=== PATIENT | male | born 1935 | race Caucasian/White ===

== ENCOUNTER → 2018-04-13 | Outpatient (CLI) | payer MEDICARE, OTHER ==
[~2018-04-13] MED LIST: ALFU10TA2 PO; CA C1TAB60 PO; METH850P PO; MEVA40 PO; MULT1TAB PO; OMEP40CA3 PO; POLY17PO PO; TEST5GEL TD; TRIA1CAP44 PO; VENLAFAXINE PO; [UNRECOGNIZED DRUG - CODE] PO
--- NOTE | 2018-04-13 13:24 | PN ---
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 It appears that the polyethylene component is not well fixed. Although the patient is able to walk with a brace, he needs a revision of his left knee. This was discussed in [facility] with him. The possibility of a polyethylene exchange versus full revision was discussed. He will be scheduled for surgery in the near future Subjective 24 Hr Interval Summary Free Text/Dictation Tray Cifuentes is an 83-year-old male who is here for evaluation of left knee pain. The pain has been ongoing for the past few weeks. Over the past few days, the knee pain is increased to a point where he is unable to do his activities without a brace. The pain is associated with swelling and stiffness. There is no history of trauma. He denies fever or chills. The patient states that something has to be done because he is unable to go on like this Additional Comments Past history significant for left knee replacement that was done in 2013 Exam/Review of Systems Exam Vitals Vital signs are stable, patient is afebrile Exam Examination shows a pleasant male. He walks with a limp. He has difficulty getting up from a sitting position. The left knee has a moderate effusion. There is anterior tenderness. Range of motion is 10-95 degrees. There appears to be prominence of polyethylene anteriorly. There is instability of the knee as well. X-rays of the knee done today are compared with previous x-rays and it appears that the polyethylene component has shifted or is dislocated JULIANE SAAVEDRA Apr 13, 2018 13:24
--- NOTE | 2018-04-13 21:53 | RADRPT ---
PROCEDURE: XR Left Knee. CLINICAL INDICATION: Left knee pain. Postop. TECHNIQUE: 2 views. Frontal and lateral. COMPARISON: 05/05/2013. FINDINGS: There is no fracture or dislocation. Vascular calcifications are present consistent with atherosclerosis. 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 There is a surgical screw anteriorly in the knee joint protr uding from the tibial component approximately 9 mm. There is no lytic or blastic lesion. IMPRESSION: 1. Atherosclerosis. 2. Surgical screw anteriorly in the knee joint protruding from the tibial component approximately 9 mm. 3. Otherwise unremarkable postoperative appearance of the left knee. RPTAT: QQ .Mina Cochran MD, MD Date Time Electronically viewed and signed by .Mina Cochran MD, MD on 04/13/2018 21:53 .R/
== END | disposition home or self-care (01) ==
LOC: HKI 11:53
PROVIDERS: ATTEND Orthopaedic Surgery
DX: M25.562 Pain in left knee (principal); Z96.652 Presence of left artificial knee joint
CPT/HCPCS: 73560; G0463

== ENCOUNTER → 2018-04-27 | Outpatient (CLI) | payer MEDICARE, OTHER ==
[~2018-04-27] MED LIST changes: +CALC1TAB79 PO; +CITR454 PO; +CLON0.5T14 PO; +ESCI20TA PO; +FINA5TAB4 PO; +GABA300C16 PO; +LOVA-54 PO; +MAXZ25 PO; +MULTI PO; +OMEP20CA16 PO; +POLY17PO6 PO; +TEST75GE TD
--- NOTE | 2018-04-27 12:02 | PN ---
Date/Time of Note Date/Time of Note DATE: 04/27/18 TIME: 12:01 Assessment/Plan VTE Prophylaxis Pharmacological prophylaxis: other Assessment/Plan Assessment/Plan The patient is an 83-year-old male with a failed left total knee replacement. He is scheduled for left knee revision in the next few days. Preoperative visit was completed. Risks and benefits of surgical treatment have been discussed with the patient including but not limited to bleeding, scarring and stiffness, infection, injury to nerves and vessels, dislocation, fracture, DVT and PE, implant failure and need for further surgery. Patient understands and wishes to proceed Subjective 24 Hr Interval Summary Free Text/Dictation Mr. Cifuentes is here for a preoperative visit related to left knee revision scheduled in about 10 days JULIANE SAAVEDRA Apr 27, 2018 12:02
== END | disposition home or self-care (01) ==
LOC: HKI 11:44
PROVIDERS: ATTEND Orthopaedic Surgery
DX: Z01.818 Encounter for other preprocedural examination (principal)
CPT/HCPCS: G0463

== ENCOUNTER 2018-05-07 08:07 | Inpatient (IN) | payer MEDICARE, OTHER ==
[2018-04-27 15:35] VITALS: Ht 182.9 cm; Wt 86.4 kg
--- NOTE | 2018-04-30 08:45 | PREOPHP ---
DATE OF ADMISSION: 05/07/2018 REASON FOR ADMISSION: The patient to have surgery with Dr. Juliane Saavedra on 05/07/2018. REASON FOR CONSULTATION: Consultation requested by Dr. Juliane Saavedra for medical evaluation and clearance of an 83-year-old gentleman about to undergo surgery. HISTORY OF PRESENT ILLNESS: Tray Cifuentes, an 83-year-old gentleman with history of a total knee replacement on the left in the past. He is currently being admitted for a re-do of a failed total knee replacement on the left. Thank you, Dr. Saavedra, for allowing us to participate in care of this patient. Tray Cifuentes 83-year-old gentleman, issues with his knee, is currently being admitted for correction of the above. PAST MEDICAL HISTORY: In terms of his past medical and surgical history, he has had no medical hospitalizations prior surgeries have included arthroscopic surgery x1 of his left knee as well as a total knee replacement on the left, umbilical hernia repair x3 and a right inguinal hernia repair x1. He has not broken any bones. MEDICATIONS: He is currently taking the following medications; 1. Lovastatin 40 mg daily. 2. Alfuzosin 10 mg daily. 3. Maxzide 37.5 one p.o. daily. 3. Clonazepam 0.5 mg b.i.d. 4. AndroGel 1.6% three pumps every morning. 5. Finasteride 5 mg once a day. 6. Lexapro 20 mg daily. 7. Gabapentin 300 mg daily. ALLERGIES: THE PATIENT IS NOT ALLERGIC TO ANY MEDICATIONS. SOCIAL HISTORY: The patient is a , has 3 daughters and 4 grandchildren. He does not smoke or drink alcohol or coffee and has no difficulty sleeping at night and has been drinking alcohol or coffee. He has no difficulty sleeping at night. FAMILY HISTORY: Father at age 86 of Parkinson's and its complications. Mother in her 90s of old age, as well as stroke if there is a family history of heart, hypertension, stroke, and Parkinson's as mentioned above. REVIEW OF SYSTEMS: HEENT: Unremarkable. CARDIORESPIRATORY: He denies any chest pain or shortness of breath. GASTROINTESTINAL: He has some signs and symptoms of hyperacidity. Otherwise, no melena or hematemesis. GENITOURINARY: He has some urgency and frequency and history of prostatic enlargement, for which he is being medicated. MUSCULOSKELETAL: Positive for left knee pain. NEUROPSYCHIATRIC: Unremarkable. GENERAL HEALTH: As above. PHYSICAL EXAMINATION: VITAL SIGNS: The patient's blood pressure was 136/70, pulse was 76 and regular, respirations were 18, temperature 98.5. Height 5 feet 11 inches, weight 198 pounds. GENERAL: The patient was noted to be a well-developed, well-nourished male, alert and cooperative, in no apparent acute distress, oriented to time, place, and person. HEAD, EARS, EYES, NOSE AND THROAT: Head was atraumatic. Eyes: Pupils were equal, reactive to light and accommodation. Fundi were benign. Tympanic membranes were unremarkable. Nose was negative. Mouth was unremarkable. Fair oral hygiene was present. NECK: Supple without any rigidity. Trachea was midline. Thyroid was within normal limits. Neck veins were flat. Carotid pulses were equal. No bruits were heard. BACK: Unremarkable. CHEST: Symmetrical. BREASTS AND AXILLARY: Did not reveal any masses. LUNGS: Clear to percussion and auscultation. HEART: PMI is fifth intercostal space at the midclavicular line. A regular sinus rhythm was noted. No significant murmurs, rubs, or gallops being elicited. ABDOMEN: Soft, good bowel sounds were noted. Scars from prior surgery is being noted. GENITALIA: Normal male external genitalia. RECTAL AND PROSTATIC: Per PCP. EXTREMITIES: Did not reveal any clubbing, edema or cyanosis. Scar from prior surgery was noted. Peripheral pulses were physiologic. SKIN: Moist and warm without any eruptions. No gross lymphadenopathy was noted. NEUROLOGIC: Grossly intact. IMPRESSION: 1. Failed total knee replacement, left knee, . 2. Hyperlipidemia. 3. Hypertension. 4. Hypogonadism. 5. Prostatic hypertrophy. 6. Stable health. DISCUSSION: Review of laboratory and other data revealed the following: The patient's chemistry panel revealed basically normal electrolytes; however, sodium was slightly low at 130, BUN and creatinine, glucose, uric acid, calcium proteins, liver function tests, lipids, iron, CBC, sed. rate, UA, PT and PTT were normal. The patient's EKG was borderline revealing bradycardia and a few PACs. Chest x-ray revealed degenerative joint disease, no acute infiltrates, nor were there any acute cardiopulmonary changes being noted, and the patient's residual volume post-void was 62 ml, which goes along with his history of prostatic hypertrophy. DISCUSSION: Dr. Saavedra, I see no contraindications in this patient undergoing current proposed surgery under desired form of anesthesia. I feel he is a suitable candidate at this particular point in time and I will be more than happy to follow him with you during his stay at [facility]. Thank you again, Dr. Saavedra for allowing us to participate in the care of this patient. Dictated By: JO ANN REA MD SS/NTS Conf#: [id number] DID#: [id number] CC: JULIANE SAAVEDRA MD;*EndCC* MTDD
[~2018-05-07] VITALS: Ht 182.9 cm; Wt 86.4 kg
[2018-05-07] VITALS (27 sets, daily range): BP systolic 92–158; BP diastolic 53–88; PULSE 50–84; RESP 12–30
[~2018-05-07 08:07] MED LIST changes: +ACETAMINOPHEN 500 MG TAB PO ONE; -CALC1TAB79 PO; +CEFAZOLIN 2 GM/50 ML (PMX) 50 ML IVPB ONE; -CITR454 PO; -CLON0.5T14 PO; +DEXAMETHASONE 4 MG/ML 1 ML INJ IV ONE; -ESCI20TA PO; -FINA5TAB4 PO; -GABA300C16 PO; +LACTATED RINGER'S 1,000 ML IV* SCH; -LOVA-54 PO; -MAXZ25 PO; -MULTI PO; -OMEP20CA16 PO; -POLY17PO6 PO; -TEST75GE TD; +TRANEXAMIC ACID 1GM/100ML(PMX) 100 ML INTRA-OP X1 IVPB ONE; +TRANEXAMIC ACID 1GM/100ML(PMX) 100 ML PRE-OP X1 IVPB ONE
[2018-05-07] MEDS ORDERED: LOVA-54 PO (08:54)
[2018-05-07] MEDS ORDERED: ALFU10TA2 PO (08:55)
[2018-05-07] MEDS ORDERED: MAXZ25 PO (08:56)
[2018-05-07] MEDS ORDERED: CLON0.5T14 PO (08:57)
[2018-05-07] MEDS ORDERED: TEST75GE TD (08:59)
[2018-05-07] MEDS ORDERED: ESCI20TA PO (09:00)
[2018-05-07] MEDS ORDERED: FINA5TAB4 PO (09:00)
[2018-05-07] MEDS ORDERED: POLY17PO6 PO (09:01)
[2018-05-07] MEDS ORDERED: GABA300C16 PO (09:01)
[2018-05-07] MEDS ORDERED: CITR454 PO (09:02)
[2018-05-07] MEDS ORDERED: OMEP20CA16 PO (09:02)
[2018-05-07] MEDS ORDERED: CALC1TAB79 PO (09:03)
[2018-05-07] MEDS ORDERED: MULTI PO (09:03)
[2018-05-07] MEDS ORDERED: ACETAMINOPHEN 1000MG/100ML IV 100 ML IVPB SCH (09:30)
--- NOTE | 2018-05-07 09:57 | HPN ---
Date/Time of Note Date/Time of Note DATE: 05/07/18 TIME: 09:57 Interval H&P Admission Note Pt. seen H&P reviewed: No system changes JULIANE SAAVEDRA May 07, 2018 09:57
[2018-05-07] MEDS ORDERED: TRANEXAMIC ACID 1GM/100ML(PMX) 200 ML ONE (10:36)
[2018-05-07] MEDS ORDERED: POLYMYXIN B 500000 UNIT INJ ONE ×2 (10:36→11:12)
[2018-05-07] MEDS ORDERED: BACITRACIN 50000 UNITS INJ ONE (10:38)
--- NOTE | 2018-05-07 11:06 | PREAC ---
Date/Time of Note Date/Time of Note DATE: 05/07/18 TIME: 11:05 Anesthesia Eval and Record Evaluation Time Pre-Procedure Interview DATE: 05/07/18 TIME: 11:05 Age 83 Sex male NPO: 8 hrs Preoperative diagnosis L knee pain Planned procedure Revision L total knee Past Medical History Past Medical History: Includes Cardio: HTN, Dyslipidemia Musculoskeletal: Osteoarthritis GI: GERD Psych: Anxiety Surgery & Anesthesia Issues No known issue Meds Anticoagulation: No Beta Bon within 24 hr: No Reason Beta Bon not given: Pt. not on B-Bon Reported Medications Calcium Carbonate/Vitamin D3 (Oysco 500+D Tablet) 1 Each Tablet, 1 EACH PO BID, TAB 05/07/18 Multivitamins* (Theragran*) 1 Tab Tab, 1 TAB PO DAILY, TAB 05/07/18 Omeprazole* (Omeprazole*) 20 Mg Capsule.dr, 20 MG PO DAILY, #30 CAP 05/07/18 Methylcellulose* (Citrucel*) 454 Gm Susp, 1 PKT PO DAILY, PKT 05/07/18 Polyethylene Glycol* (Miralax*) 17 Gm Powd.pack, 17 GM PO TID, #30 PACKET 05/07/18 Gabapentin* (Gabapentin*) 300 Mg Capsule, 300 MG PO QHS, #60 CAP 05/07/18 Escitalopram Oxalate* (Lexapro*) 20 Mg Tablet, 20 MG PO DAILY, #30 TAB 05/07/18 Finasteride* (Finasteride*) 5 Mg Tablet, 5 MG PO DAILY, TAB 05/07/18 Testosterone* (Androgel*) 1.62%-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, 4 PUMP TD DAILY, EA 05/07/18 Clonazepam* (Clonazepam*) 0.5 Mg Tablet, 0.5 MG PO BID, TAB 05/07/18 Triamterene/Hctz* (Maxzide (37.5-25)*) 1 Each Tablet, 1 EACH PO DAILY, #30 TAB 05/07/18 Alfuzosin Hcl* (Alfuzosin Hcl*) 10 Mg Tab.er.24h, 10 MG PO PC DINNER, #30 TAB.SA 05/07/18 Lovastatin* (Altoprev*) 40 Mg Tab.sr.24h, 40 MG PO HS, TAB 05/07/18 Discontinued Reported Medications Polyethylene Glycol (Miralax) 17 Gm/Pkt Liq, 17 GM PO TID 11/12/12 Methylcellulose (With Sugar) (CITRUCEL POWDER) 850 Gm Powder, 850 GM PO AM 1 SCOOP Q AM 11/12/12 Multivitamins W-Minerals/Lut (Mature Adult Century Tablet) 1 Tab Tablet, 1 TAB PO BID 11/12/12 Omeprazole* (Prilosec*) 40 Mg Capsule.dr, 40 MG PO PM 11/12/12 Ca Carbonate-Vitamin D3-Vit K (Calcium + D Soft Chewable Tab) 1 Each Tab.chew, 1 EACH PO 11/12/12 Testosterone* (Androgel*) 5 Gm Gel.packet, 5 GM TD AM 4 PUMPS EVERY MORNING 11/12/12 Clonazepam* (Clonazepam* ODT) 0.5 Mg/Tab Tab.rapdis, 0.5 MG PO BID 11/12/12 [Vanlafaxine Hcl] No Conflict Check, 75 PO BID 11/12/12 Triamterene-HCTZ (Triamterene-HCTZ) 1 Cap Capsule, 1 CAP PO PM 11/12/12 Alfuzosin Hcl* (Alfuzosin Hcl*) 10 Mg Tab.er.24h, 10 MG PO PM 11/12/12 Lovastatin (Lovastatin) 40 Mg Tablet, 40 MG PO PM 11/12/12 Current Medications Lactated Ringer's 1,000 ml @ 125 mls/hr Q8H IV* Last administered on 05/07/18at 07:00; Admin Dose 125 MLS/HR; Start 05/07/18 at 07:00; Stop 05/07/18 at 14:59 Meds reviewed: Yes Allergies Coded Allergies: No Known Allergies (Verified Allergy, Unknown, 05/07/18) Allergies Reviewed: Yes Labs/Studies Labs Reviewed: Reviewed by anesthesiologist Blood Bank Test 05/07/18 09:00 Antibody Screen NEGATIVE Blood Type A POSITIVE test: N/A Studies: ECG Pre-procedure Exam Last vitals Vital Signs Date Temp Pulse Resp B/P (MAP) Pulse Ox O2 O2 Flow FiO2 Time Delivery Rate 05/07/18 97.5 50 16 156/68 97 Room Air 09:13 (97) Airway: Adequate mouth opening, Adequate thyromental dist Mallampati: Mallampati II Teeth: Normal Lung: Normal Heart: Normal ASA Physical Status ASA physical status: 3 Emergency: None Planned Anesthetic General/MAC: ETT Neuraxial: Spinal Nerve block: Femoral (left) Planned Pain Management Sub-arachniod narcotics Pre-operative Attestations Prior to commencing anesthesia and surgery, the patient was re-evaluated, there was verification of: *The patient's identity *The results of appropriate recent lab work and preoperative vital signs *The above evaluation not changing prior to induction *Anesthetic plan, risk benefits, alternative and complications discussed with patient/family; questions answered; patient/family understands, accepts and wishes to proceed. MIKE MONTERO May 07, 2018 11:06
[2018-05-07] MEDS ORDERED: morphine SULFATE/PF (10 MG/10 ML) INJ ONE (11:30)
[2018-05-07] MEDS ORDERED: MIDAZOLAM 1 MG/ML 2 ML INJ ONE (11:30)
[2018-05-07] MEDS ORDERED: METOCLOPRAMIDE 10 MG INJ IV PRN (11:30)
[2018-05-07] MEDS ORDERED: FENTAnyl 50 MCG/ML VIAL IV PRN ×2 (11:30)
[2018-05-07] MEDS ORDERED: DIPHENHYDRAMINE 50 MG INJ IV PRN (11:30)
[2018-05-07] MEDS ORDERED: ROPIVACAINE 0.5 % 30 ML VIAL ONE (11:30)
[2018-05-07] MEDS ORDERED: ONDANSETRON 4 MG INJ IV PRN (11:30)
[2018-05-07] MEDS ORDERED: HYDROmorphONE 1 MG/5 ML IV SYRINGE IV PRN ×2 (11:30)
[2018-05-07] MEDS ORDERED: ALBUTEROL 0.083% (NEB) 2.5 MG/3 ML AMP HHN PRN (11:30)
[2018-05-07] MEDS ORDERED: FENTAnyl 50 MCG/ML VIAL ONE (12:04)
[2018-05-07] MEDS ORDERED: PROPOFOL 40 ML ONE (13:20)
[2018-05-07] MEDS ORDERED: CEFAZOLIN 1 GM INJ ONE (13:20)
--- NOTE | 2018-05-07 13:22 | SIPON ---
Date/Time of Note Date/Time of Note DATE: 05/07/18 TIME: 13:21 Operative Report Preoperative Diagnosis Failed left total knee replacement Postoperative Diagnosis Same Operation/Procedure Performed Revision of left total knee replacement Surgeon see signature line therapeutic assistant None Anesthesia: spinal Estimated blood loss: 150 - 200 ml's Transfusion Required none Specimen Cultures Grafts/Implants DJ O knee, 15 mm polyethylene for a size 8 tibia. 38 mm patella from the [employer] knee system Complications none JULIANE SAAVEDRA May 07, 2018 13:22
--- NOTE | 2018-05-07 13:26 | OPR ---
Date/Time of Note Date/Time of Note DATE: 05/07/18 TIME: 13:22 Operative Report Procedure Date: May 07, 2018 Preoperative Diagnosis Failed left total knee replacement Postoperative Diagnosis Same Operation/Procedure Performed Revision of left total knee replacement Surgeon see signature line Char Filter Tank Tender None Anesthesia Type: spinal Estimated Blood Loss: 150 - 200 ml's Transfusion none Specimen Cultures Grafts/Implants DJ O knee, size 15 polyethylene for a size 8 tibia, 38 mm patella component from the attune knee system Complications none Pt Condition Post Procedure: stable Disposition: PACU Indications The patient is an 83-year-old male with a failed left knee replacement and dislocated polyethylene Procedure Description The patient was placed supine on the operating room table. The left knee was prepped and draped in the usual manner, preoperative antibiotics were administered. The left knee was approached anteriorly using the previous incision. Upon entering the joint a large effusion was encountered. Cultures were obtained. Reactive synovitis was seen much of the synovium was removed. Extensive polyethylene particles were noted in the knee, these were removed. The polyethylene post was broken and the polyethylene component was displaced. The previous polyethylene was removed. The patellar component was damaged as well. The patellar component was removed as well. New components were placed including a 38 mm patella and new polyethylene. Trials showed that 15 mm of polyethylene were adequate to stabilize the knee. The polyethylene was stabilized with provided bolt from the DJ O knee system. The knee had full range of motion with good tracking of the patella. The knee was injected with pain cocktail. Hemostasis was confirmed with electrocautery and aqua mantis. The knee was closed in layers using #1 strata fix for deep fascia, 2-0 Vicryl for subcutaneous tissue and 3-0 Monocryl for the skin. Patient was transferred to the recovery room in stable condition JULIANE SAAVEDRA May 07, 2018 13:26
[2018-05-07] MEDS ORDERED: MAGNESIUM HYDROXIDE 30ML CUP PO PRN (13:30)
[2018-05-07] MEDS ORDERED: NALOXONE (0.4 MG/ML) INJ IV PRN (13:30)
[2018-05-07] MEDS ORDERED: oxyCODONE 5 MG TAB PO PRN ×2 (13:30)
[2018-05-07] MEDS ORDERED: NACL 0.9% 3 ML SYG IV SCH (13:30)
[2018-05-07] MEDS ORDERED: KETOROLAC 15 MG INJ IV PRN (13:30)
[2018-05-07] MEDS: CEFAZOLIN 2 GM/50 ML (PMX) 50 ML IVPB SCH ×2 (14:06→21:40)
--- NOTE | 2018-05-07 15:39 | CONS ---
Consult Date/Type/Reason Admit Date/Time May 07, 2018 at 08:07 Initial Consult Date 04/27/2018 Type of Consultation: internal medicine Reason for Consultation pre-op medical evaluation and clearance Requesting Provider: JULIANE SAAVEDRA Date/Time of Note DATE: 05/07/18 TIME: 15:30 Subjective alert post-op in recovery room waiting for trasfer to floor care Objective Vitals Vital Signs Date Temp Pulse Resp B/P (MAP) Pulse Ox O2 O2 Flow FiO2 Time Delivery Rate 05/07/18 76 21 133/67 95 Room Air 15:00 (89) 05/07/18 98.0 13:45 Exam vital signs stable HEENT negative lungs clear heart regular rhythm abdomen soft extremities right OK left bandage at surgical site edema left lower extremity Results/Medications Home Meds Reported Medications Calcium Carbonate/Vitamin D3 (Oysco 500+D Tablet) 1 Each Tablet, 1 EACH PO BID, TAB 05/07/18 Multivitamins* (Theragran*) 1 Tab Tab, 1 TAB PO DAILY, TAB 05/07/18 Omeprazole* (Omeprazole*) 20 Mg Capsule.dr, 20 MG PO DAILY, #30 CAP 05/07/18 Methylcellulose* (Citrucel*) 454 Gm Susp, 1 PKT PO DAILY, PKT 05/07/18 Polyethylene Glycol* (Miralax*) 17 Gm Powd.pack, 17 GM PO TID, #30 PACKET 05/07/18 Gabapentin* (Gabapentin*) 300 Mg Capsule, 300 MG PO QHS, #60 CAP 05/07/18 Escitalopram Oxalate* (Lexapro*) 20 Mg Tablet, 20 MG PO DAILY, #30 TAB 05/07/18 Finasteride* (Finasteride*) 5 Mg Tablet, 5 MG PO DAILY, TAB 05/07/18 Testosterone* (Androgel*) 1.62%-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, 4 PUMP TD DAILY, EA 05/07/18 Clonazepam* (Clonazepam*) 0.5 Mg Tablet, 0.5 MG PO BID, TAB 05/07/18 Triamterene/Hctz* (Maxzide (37.5-25)*) 1 Each Tablet, 1 EACH PO DAILY, #30 TAB 05/07/18 Alfuzosin Hcl* (Alfuzosin Hcl*) 10 Mg Tab.er.24h, 10 MG PO PC DINNER, #30 TAB.SA 05/07/18 Lovastatin* (Altoprev*) 40 Mg Tab.sr.24h, 40 MG PO HS, TAB 05/07/18 Discontinued Reported Medications Polyethylene Glycol (Miralax) 17 Gm/Pkt Liq, 17 GM PO TID 11/12/12 Methylcellulose (With Sugar) (CITRUCEL POWDER) 850 Gm Powder, 850 GM PO AM 1 SCOOP Q AM 11/12/12 Multivitamins W-Minerals/Lut (Mature Adult Century Tablet) 1 Tab Tablet, 1 TAB PO BID 11/12/12 Omeprazole* (Prilosec*) 40 Mg Capsule.dr, 40 MG PO PM 11/12/12 Ca Carbonate-Vitamin D3-Vit K (Calcium + D Soft Chewable Tab) 1 Each Tab.chew, 1 EACH PO 11/12/12 Testosterone* (Androgel*) 5 Gm Gel.packet, 5 GM TD AM 4 PUMPS EVERY MORNING 11/12/12 Clonazepam* (Clonazepam* ODT) 0.5 Mg/Tab Tab.rapdis, 0.5 MG PO BID 11/12/12 [Vanlafaxine Hcl] No Conflict Check, 75 PO BID 11/12/12 Triamterene-HCTZ (Triamterene-HCTZ) 1 Cap Capsule, 1 CAP PO PM 11/12/12 Alfuzosin Hcl* (Alfuzosin Hcl*) 10 Mg Tab.er.24h, 10 MG PO PM 11/12/12 Lovastatin (Lovastatin) 40 Mg Tablet, 40 MG PO PM 11/12/12 Medications Current Medications Hydromorphone HCl (Dilaudid) 0.2 mg PACU PRN IV MILD PAIN 1-3; Start 05/07/18 at 11:30; Stop 05/07/18 at 18:00 Hydromorphone HCl (Dilaudid) 0.4 mg PACU PRN IV MOD PAIN 4-6; Start 05/07/18 at 11:30; Stop 05/07/18 at 18:00 Fentanyl (Sublimaze) 25 mcg PACU ORDER PRN IV MILD PAIN 1-3; Start 05/07/18 at 11:30; Stop 05/07/18 at 18:00 Fentanyl (Sublimaze) 50 mcg PACU ORDER PRN IV MOD PAIN 4-6; Start 05/07/18 at 11:30; Stop 05/07/18 at 18:00 Ondansetron HCl (Zofran Inj) 4 mg PACU ORDER PRN IV NAUSEA/VOMITING; Start 05/07/18 at 11:30; Stop 05/07/18 at 18:00 Lactated Ringer's 1,000 ml @ 80 mls/hr [id number] IV ; Start 05/07/18 at 13:26 IV Flush (NS 3 ml) 3 ml PER PROTOCOL IV ; Start 05/07/18 at 13:30 Oxycodone HCl (Roxicodone) 10 mg Q4H PRN PO .PAIN; Start 05/07/18 at 13:30 Oxycodone HCl (Roxicodone) 5 mg Q4H PRN PO .PAIN; Start 05/07/18 at 13:30 Ketorolac Tromethamine (Toradol) 15 mg Q6H PRN IV .PAIN; Start 05/07/18 at 13:30 Ondansetron HCl (Zofran Inj) 4 mg Q4H PRN IV NAUSEA/VOMITING; Start 05/08/18 at 13:30 Cefazolin Sodium/ Dextrose 50 ml @ 100 mls/hr Q8H IVPB Last administered on 05/07/18at 14:06; Admin Dose 100 MLS/HR; Start 05/07/18 at 13:30; Stop 05/08/18 at 05:59 Celecoxib (Celebrex) 100 mg BID PO ; Start 05/08/18 at 09:00 Gabapentin (Neurontin) 100 mg TID PO ; Start 05/07/18 at 21:00 Pantoprazole (Protonix Tab) 40 mg DAILY@06 PO ; Start 05/09/18 at 06:00 Docusate Sodium (Colace) 200 mg BID PO ; Start 05/08/18 at 09:00; Stop 05/11/18 at 08:59 Magnesium Hydroxide (Milk Of Mag) 30 ml HS PRN PO .CONSTIPATION; Start 05/07/18 at 13:30 Naloxone HCl (Narcan) 0.2 mg Q2M PRN IV .RESP RATE; Start 05/07/18 at 13:30 Aspirin (Halfprin) 81 mg BID PO ; Start 05/08/18 at 09:00 Assessment/Plan Hospital Course (Demo Recall) patient with left knee pain 2nd to DJD left knee post TKR left knee Assessment/Plan (Daily) plan to re-order pre-op meds and follow with you and monitor general medical condition thank you JO ANN Rivera MD May 07, 2018 15:39
--- NOTE | 2018-05-07 16:03 | PAC ---
Date/Time of Note Date/Time of Note DATE: 05/07/18 TIME: 16:03 Post-Anesthesia Notes Post-Anesthesia Note Last documented vital signs Vital Signs Date Temp Pulse Resp B/P (MAP) Pulse Ox O2 O2 Flow FiO2 Time Delivery Rate 05/07/18 98.3 73 18 142/68 98 15:56 (92) 05/07/18 Room Air 15:00 Activity: WNL Respiratory function: WNL Cardiovascular function: WNL Mental status: Baseline Pain reasonably controlled: Yes Hydration appropriate: Yes Nausea/Vomiting absent: Yes MIKE MONTERO May 07, 2018 16:03
[2018-05-07] MEDS: LACTATED RINGER'S 1,000 ML IV SCH (17:43)
[2018-05-07] MEDS: POLYETHYLENE GLYCOL 17 GM PACKET PO SCH (20:03)
[2018-05-07] MEDS: ALFUZOSIN (SR) 10 MG TAB PO SCH (20:03)
[2018-05-07] MEDS: GABAPENTIN 300 MG CAP PO SCH (21:00)
[2018-05-07] MEDS: GABAPENTIN 100 MG CAP PO SCH (21:00)
[2018-05-07] MEDS: PANTOPRAZOLE SODIUM 20 MG TABEC PO SCH (21:40)
[2018-05-07] MEDS: clonAZEPAM 0.5 MG TAB PO SCH (21:49)
[2018-05-08] VITALS: BP 102/54; PULSE 87; RESP 16
[2018-05-08] MEDS ORDERED: DIPHENHYDRAMINE 25 MG CAP PO PRN
[2018-05-08] MEDS: LORAZEPAM 1 MG TAB PO PRN ×2 (00:14→19:50)
[2018-05-08] MEDS: LACTATED RINGER'S 1,000 ML IV SCH ×2 (01:56→14:26)
[2018-05-08 02:16] VITALS: BP 102/54; PULSE 87; RESP 18
[2018-05-08 05:00] VITALS: BP 137/68; PULSE 86; RESP 18
[2018-05-08] MEDS: CEFAZOLIN 2 GM/50 ML (PMX) 50 ML IVPB SCH (05:13)
[2018-05-08] MEDS: POLYETHYLENE GLYCOL 17 GM PACKET PO SCH (06:52)
[2018-05-08] MEDS ORDERED: POLYETHYLENE GLYCOL 17 GM PACKET PO SCH (07:00)
[2018-05-08 07:39] VITALS: BP 151/71; RESP 18
[2018-05-08] MEDS: [UNRECOGNIZED DRUG - REMARK] XX SCH ×2 (08:00→16:00)
[2018-05-08] MEDS: GABAPENTIN 100 MG CAP PO SCH ×3 (08:02→19:51)
[2018-05-08] MEDS ORDERED: METHYLCELLULOSE PACKET PO SCH (09:00)
[2018-05-08] MEDS: FINASTERIDE 5 MG TAB PO SCH (09:00)
[2018-05-08] MEDS: DOCUSATE SODIUM 100 MG CAP PO SCH ×2 (09:00→19:51)
[2018-05-08] MEDS ORDERED: TESTOSTERONE PUMP TD SCH (09:00)
[2018-05-08] MEDS: clonAZEPAM 0.5 MG TAB PO SCH ×2 (09:04→19:50)
[2018-05-08] MEDS: ASPIRIN (EC) 81 MG TAB PO SCH ×2 (09:05→19:51)
[2018-05-08] MEDS: CELECOXIB 100 MG CAP PO SCH ×2 (09:06→19:50)
[2018-05-08] MEDS: ESCITALOPRAM 10 MG TAB PO SCH (09:07)
[2018-05-08] MEDS: MULTIVITAMINS THERAPEUTIC TAB PO SCH (09:07)
[2018-05-08] MEDS: METHYLCELLULOSE PACKET PO SCH (10:46)
[2018-05-08] MEDS ORDERED: ONDANSETRON 4 MG INJ IV PRN (13:30)
[2018-05-08 14:00] VITALS: BP 135/66; PULSE 80; RESP 18
[2018-05-08] MEDS: GABAPENTIN 300 MG CAP PO SCH (19:50)
[2018-05-08] MEDS: PANTOPRAZOLE SODIUM 20 MG TABEC PO SCH (20:16)
[2018-05-08] MEDS: ALFUZOSIN (SR) 10 MG TAB PO SCH (20:47)
[2018-05-08 20:57] VITALS: BP 123/58; PULSE 63; RESP 18
[2018-05-08] MEDS ORDERED: ATORVASTATIN 10 MG TAB PO SCH (21:00)
[2018-05-09 02:00] VITALS: BP 148/67; PULSE 73; RESP 19
[2018-05-09] MEDS ORDERED: PANTOPRAZOLE (EC) 40 MG TAB PO SCH (06:00)
[2018-05-09 07:35] VITALS: BP 135/66; PULSE 68; RESP 18
[2018-05-09] MEDS: [UNRECOGNIZED DRUG - REMARK] XX SCH ×2 (08:00)
[2018-05-09] MEDS: METHYLCELLULOSE PACKET PO SCH (09:00)
[2018-05-09] MEDS: DOCUSATE SODIUM 100 MG CAP PO SCH (09:00)
[2018-05-09] MEDS: POLYETHYLENE GLYCOL 17 GM PACKET PO SCH (09:16)
[2018-05-09] MEDS: GABAPENTIN 100 MG CAP PO SCH ×2 (09:17→12:24)
[2018-05-09] MEDS: CELECOXIB 100 MG CAP PO SCH (09:17)
[2018-05-09] MEDS: MULTIVITAMINS THERAPEUTIC TAB PO SCH (09:18)
[2018-05-09] MEDS: ESCITALOPRAM 10 MG TAB PO SCH (09:18)
[2018-05-09] MEDS: FINASTERIDE 5 MG TAB PO SCH (09:18)
[2018-05-09] MEDS: clonAZEPAM 0.5 MG TAB PO SCH (09:19)
[2018-05-09] MEDS: ASPIRIN (EC) 81 MG TAB PO SCH (09:19)
--- NOTE | 2018-05-09 13:11 | PN ---
Date/Time of Note Date/Time of Note DATE: 05/09/18 TIME: 13:09 Assessment/Plan Lines/Catheters IV Catheter Type (from Nrsg): Saline Lock Garcia in Place (from Nrsg): Yes Assessment/Plan Assessment/Plan 83-year-old male who is doing well after left knee revision. He is discharged home today with instructions to continue physical therapy. He will follow-up in 2 weeks with x-rays Subjective 24 Hr Interval Summary Mr. Cifuentes is progressing well after revision of his knee replacement. He has been up with physical therapy and has already been cleared for discharge. The patient feels well and although the pain has increased slightly, he feels that he is independent and able to return home. He denies fever or chills. Pain is well controlled with oral medication Exam/Review of Systems Vital Signs Vitals Vital Signs Date Temp Pulse Resp B/P (MAP) Pulse Ox O2 O2 Flow FiO2 Time Delivery Rate 05/09/18 97.4 68 18 135/66 94 07:35 (89) 05/08/18 Room Air 14:00 Intake and Output 05/08/18 05/08/18 05/09/18 1515:00 23:00 07:00 IntakeIntake Total 1300 ml 480 ml OutputOutput Total 900 ml 900 ml 1500 ml BalanceBalance -900 ml 400 ml -1020 ml Exam Free Text/Dictation Examination shows an intact dressing on the left knee. Mild swelling is noted. Range of motion is 10-120. There is no neurovascular deficit Results Result Diagram: 05/09/18 0431 05/09/18 0431 JULIANE SAAVEDRA May 09, 2018 13:11
--- NOTE | 2018-05-09 13:12 | PDOCDIS ---
Discharge Instructions CONDITION [id number] Patient Condition: [id number] Good HOME CARE INSTRUCTIONS: [id number] Diet Instructions: [id number] Regular ACTIVITY: [id number] Activity Restrictions: [id number] Rest between Activity Do not Drive Do not operate Machinery Avoid Heavy Housework [id number] Bathing Restrictions: [id number] Shower FOLLOW UP/APPOINTMENTS Follow-up Plan Follow-up with Dr. Saavedra in 2 weeks REFERRALS [id number] Agency Name and Phone Number: [address] [facility] [phone] JULIANE SAAVEDRA May 09, 2018 13:12
--- NOTE | 2018-05-10 09:15 | CONS ---
Consult Date/Type/Reason Admit Date/Time May 07, 2018 at 08:07 Initial Consult Date 04/27/2018 Type of Consultation: internal medicine Reason for Consultation medical f/u and management Requesting Provider: JULIANE SAAVEDRA Date/Time of Note DATE: 05/10/18 TIME: 09:09 Subjective leg still numb left leg can't put weight on it [id number] AM Objective Vitals Vital Signs Date Temp Pulse Resp B/P (MAP) Pulse Ox O2 O2 Flow FiO2 Time Delivery Rate 05/09/18 97.4 68 18 135/66 94 07:35 (89) 05/08/18 Room Air 14:00 Intake and Output 05/09/18 05/09/18 05/10/18 1515:00 23:00 07:00 IntakeIntake Total 200 ml BalanceBalance 200 ml Exam Vital signs stable HEENT negative lungs clear heart regular rhythm abdomen soft left lower extremity edema 1+ strength +/- Results/Medications Result Diagram: 05/09/1843005/09/18 043 Home Meds Reported Medications Calcium Carbonate/Vitamin D3 (Oysco 500+D Tablet) 1 Each Tablet, 1 EACH PO BID, TAB 05/07/18 Multivitamins* (Theragran*) 1 Tab Tab, 1 TAB PO DAILY, TAB 05/07/18 Omeprazole* (Omeprazole*) 20 Mg Capsule.dr, 20 MG PO DAILY, #30 CAP 05/07/18 Methylcellulose* (Citrucel*) 454 Gm Susp, 1 PKT PO DAILY, PKT 05/07/18 Polyethylene Glycol* (Miralax*) 17 Gm Powd.pack, 17 GM PO TID, #30 PACKET 05/07/18 Gabapentin* (Gabapentin*) 300 Mg Capsule, 300 MG PO QHS, #60 CAP 05/07/18 Escitalopram Oxalate* (Lexapro*) 20 Mg Tablet, 20 MG PO DAILY, #30 TAB 05/07/18 Finasteride* (Finasteride*) 5 Mg Tablet, 5 MG PO DAILY, TAB 05/07/18 Testosterone* (Androgel*) 1.62%-75gm Gel..gl accountant, 4 PUMP TD DAILY, EA 05/07/18 Clonazepam* (Clonazepam*) 0.5 Mg Tablet, 0.5 MG PO BID, TAB 05/07/18 Triamterene/Hctz* (Maxzide (37.5-25)*) 1 Each Tablet, 1 EACH PO DAILY, #30 TAB 05/07/18 Alfuzosin Hcl* (Alfuzosin Hcl*) 10 Mg Tab.er.24h, 10 MG PO PC DINNER, #30 TAB.SA 05/07/18 Lovastatin* (Altoprev*) 40 Mg Tab.sr.24h, 40 MG PO HS, TAB 05/07/18 Discontinued Reported Medications Polyethylene Glycol (Miralax) 17 Gm/Pkt Liq, 17 GM PO TID 11/12/12 Methylcellulose (With Sugar) (CITRUCEL POWDER) 850 Gm Powder, 850 GM PO AM 1 SCOOP Q AM 11/12/12 Multivitamins W-Minerals/Lut (Mature Adult Century Tablet) 1 Tab Tablet, 1 TAB PO BID 11/12/12 Omeprazole* (Prilosec*) 40 Mg Capsule.dr, 40 MG PO PM 11/12/12 Ca Carbonate-Vitamin D3-Vit K (Calcium + D Soft Chewable Tab) 1 Each Tab.chew, 1 EACH PO 11/12/12 Testosterone* (Androgel*) 5 Gm Gel.packet, 5 GM TD AM 4 PUMPS EVERY MORNING 11/12/12 Clonazepam* (Clonazepam* ODT) 0.5 Mg/Tab Tab.rapdis, 0.5 MG PO BID 11/12/12 [Vanlafaxine Hcl] No Conflict Check, 75 PO BID 11/12/12 Triamterene-HCTZ (Triamterene-HCTZ) 1 Cap Capsule, 1 CAP PO PM 11/12/12 Alfuzosin Hcl* (Alfuzosin Hcl*) 10 Mg Tab.er.24h, 10 MG PO PM 11/12/12 Lovastatin (Lovastatin) 40 Mg Tablet, 40 MG PO PM 11/12/12 Assessment/Plan Hospital Course (Demo Recall) 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
== END 2018-05-09 13:12 | disposition home or self-care (01) | DRG 489 ==
LOC: REC 08:07 → MS1 15:45
PROVIDERS: ADMIT Orthopaedic Surgery; ATTEND Orthopaedic Surgery
PROC: 0SUW09Z Supplement Left Knee Joint, Tibial Surface with Liner, Open Approach (ICD-10-PCS; 2018-05-07)
PROC: 0SUD09C Supplement Left Knee Joint with Liner, Patellar Surface, Open Approach (ICD-10-PCS; 2018-05-07)
PROC: 0SPD09Z Removal of Liner from Left Knee Joint, Open Approach (ICD-10-PCS; principal; 2018-05-07 10:30)
DX: T84.093A Other mechanical complication of internal left knee prosthesis, initial encounter (principal); T84.028A Dislocation of other internal joint prosthesis, initial encounter; T84.84XA Pain due to internal orthopedic prosthetic devices, implants and grafts, initial encounter; M25.462 Effusion, left knee; M25.562 Pain in left knee; E78.5 Hyperlipidemia, unspecified; F41.9 Anxiety disorder, unspecified; I10 Essential (primary) hypertension; E29.1 Testicular hypofunction; N40.0 Benign prostatic hyperplasia without lower urinary tract symptoms; Y83.8 Other surgical procedures as the cause of abnormal reaction of the patient, or of later complication, without mention of misadventure at the time of the procedure; Z96.652 Presence of left artificial knee joint
CPT/HCPCS: 80048; 85025; 86850; 86900; 86901; 87070; 87075; 87081; 87086; 88300; 97110; 97116; 97162; 97530; C1713; C1776; J0131; J0171; J0690; J0735; J1100; J1885; J2250; J2274; J2795; J3010; J7120